=== PATIENT | male | born 1990 | race Caucasian/White ===

== ENCOUNTER 2020-01-21 16:10 | Emergency (ER) | payer MEDICAID ==
[~2020-01-21] VITALS: Ht 167.6 cm; Wt 64.0 kg
[~2020-01-21 16:10] MED LIST: LASIX80 MG PO; NEP PO; PHOS PO; SOD650 PO
[2020-01-21 16:17] VITALS: Ht 167.6 cm; Wt 64.0 kg
[2020-01-21 16:38] VITALS: BP 132/72
== END 2020-01-21 16:38 | disposition home or self-care (01) ==
LOC: ED 16:10
DX: Z48.01 Encounter for change or removal of surgical wound dressing (principal); Z87.442 Personal history of urinary calculi; Z99.2 Dependence on renal dialysis

== ENCOUNTER 2020-03-23 19:29 | Emergency (ER) | payer MEDICAID, SELFPAY ==
[~2020-03-23] VITALS: Ht 170.2 cm; Wt 56.7 kg
[2020-03-23 19:58] VITALS: Ht 170.2 cm; Wt 56.7 kg
[2020-03-23 20:26] VITALS: BP 122/84
== END 2020-03-23 20:26 | disposition home or self-care (01) ==
LOC: ED 19:29
DX: U07.1 COVID-19 (principal); N18.6 End stage renal disease; Z99.2 Dependence on renal dialysis
CPT/HCPCS: Q0092; U0003-CS